=== PATIENT | male | born 1975 | race Caucasian/White ===

== ENCOUNTER 2022-04-07 04:03 | Emergency (ER) | payer OTHER ==
[~2022-04-07] VITALS: Ht 170.2 cm; Wt 83.0 kg
[2022-04-07] MEDS ORDERED: LISI10TA29 PO (04:55)
[2022-04-07] MEDS ORDERED: AMLO-212 PO (04:55)
[2022-04-07] MEDS ORDERED: FAMOTIDINE. 20 MG/2 ML VIAL IV ONE ×2 (05:00→05:02)
[2022-04-07] MEDS ORDERED: methylPREDNISolone SOD SUCC 125 MG/2 ML VIAL IV ONE (05:00)
[2022-04-07] MEDS ORDERED: diphenhydrAMINE 50 MG/1 ML VIAL IV ONE (05:00)
--- NOTE | 2022-04-07 05:00 | NUR ---
Patient is a/ox4, able to walk with steady gait. NAD noted. Patient denies SOB
[2022-04-07] MEDS ORDERED: diphenhydrAMINE 50 MG/1 ML VIAL ONE (05:01)
[2022-04-07] MEDS ORDERED: methylPREDNISolone SOD SUCC 125 MG/2 ML VIAL ONE (05:02)
[2022-04-07] MEDS ORDERED: ONDANSETRON 4 MG/2 ML VIAL ONE (05:15)
--- NOTE | 2022-04-07 05:16 | NUR ---
Dr Christy verbally ordered zofran 4mg IV.
[2022-04-07 05:18] LABS: HEMATOCRIT 40.3 % (36.7-47.1); MEAN CORPUSCULAR HEMOGLOBIN 26.3 uug (23.8-33.4); MEAN CORPUSCULAR VOLUME 77.7 fL (73.0-96.2); PLATELET COUNT (AUTO) 263 K/uL (152-348)
[2022-04-07 05:25] LABS: POTASSIUM 3.4 mmol/L (3.5-5.1)
[2022-04-07 05:30] LABS: BILIRUBIN,DIRECT 0.2 mg/dL (0.0-0.2); BILIRUBIN,TOTAL 1.1 mg/dL (0.2-1.0); TOTAL PROTEIN, SERUM 8.8 g/dL (6.4-8.2)
--- NOTE | 2022-04-07 07:17 | NUR ---
report given to Theodore PUENTE
--- NOTE | 2022-04-07 09:39 | NUR ---
Started transfusion of FFP at 0915, VSS. Recheck okay, VSS. Pt resting in bed, no complaints, no distress noted.
--- NOTE | 2022-04-07 10:30 | NUR ---
Ended transfusion at 1015, no reactions, no distress noted.
== END 2022-04-07 11:25 | disposition home or self-care (01) ==
LOC: ER 04:11
DX: T78.3XXA Angioneurotic edema, initial encounter (principal); T46.4X5A Adverse effect of angiotensin-converting-enzyme inhibitors, initial encounter; Y92.039 Unspecified place in apartment as the place of occurrence of the external cause; I10 Essential (primary) hypertension; E78.5 Hyperlipidemia, unspecified
CPT/HCPCS: 80076; 80048; 85025; 86850; 86900; 86901; 36415; 99285; 96374; 96375; 36430; P9059; J1200; J3490; J2930; J2405; A4663

== ENCOUNTER 2022-06-09 20:28 | Emergency (ER) | payer SELFPAY ==
[~2022-06-09 20:28] MED LIST: AMLO-212 PO; LISI10TA29 PO
--- NOTE | 2022-06-09 20:46 | NUR ---
Went outside to triaged patient, but was not present in the waiting room or outside of ER.
--- NOTE | 2022-06-09 21:10 | NUR ---
Patient was called to be triaged but was not present in the waiting room or outside of ER. PATIENT WAS NOT TRIAGED OR SEEN BY ERMD.
== END 2022-06-09 21:10 | disposition left against medical advice (07) ==
LOC: ER 20:28
DX: Z53.21 Procedure and treatment not carried out due to patient leaving prior to being seen by health care provider (principal)

== ENCOUNTER 2022-08-13 10:08 | Emergency (ER) | payer OTHER ==
[~2022-08-13] VITALS: Ht 167.6 cm; Wt 86.2 kg
--- NOTE | 2022-08-13 10:20 | NUR ---
Pt ambulatory to room 2A, c/o chest pressure and high blood pressure readings at home. at bedside.
[2022-08-13] MEDS ORDERED: AMLO-212 PO (10:21)
[2022-08-13] MEDS ORDERED: METO-356 PO (10:21)
[2022-08-13] MEDS ORDERED: PANT40TA49 PO (10:21)
--- NOTE | 2022-08-13 10:25 | NUR ---
[facility] to do EKG at this time due to EKG machine malfunction. [facility] called, spoke with Manolo.
[2022-08-13] MEDS ORDERED: ASPIRIN 325 MG TABLET PO ONE (10:30)
[2022-08-13 10:49] LABS: HEMATOCRIT 38.3 % (36.7-47.1); MEAN CORPUSCULAR HEMOGLOBIN 26.6 uug (23.8-33.4); MEAN CORPUSCULAR VOLUME 79.7 fL (73.0-96.2); PLATELET COUNT (AUTO) 258 K/uL (152-348)
[2022-08-13 11:04] LABS: ALANINE AMINOTRANSFERASE 27 U/L (16-63); ALKALINE PHOSPHATASE 109 U/L (50-136); ASPARTATE AMINOTRANSFERASE 14 U/L (15-37); BILIRUBIN,DIRECT 0.2 mg/dL (0.0-0.2); BILIRUBIN,TOTAL 0.7 mg/dL (0.2-1.0); CARBON DIOXIDE 28 mmol/L (21-32); CHLORIDE 101 mmol/L (98-107); GLUCOSE 114 mg/dL (74-106); POTASSIUM 3.5 mmol/L (3.5-5.1); TOTAL PROTEIN, SERUM 8.1 g/dL (6.4-8.2); UREA NITROGEN, BLOOD 14 mg/dL (7-18)
--- NOTE | 2022-08-13 11:05 | NUR ---
Pepito from [employer] here and unable to fix EKG machine. Attempted to use the old machine, which also not functional. ERMD notified. Called [facility] dept to bring another EKG machine.
[2022-08-13] MEDS ORDERED: ASPIRIN 325 MG TABLET ONE (12:14)
--- NOTE | 2022-08-13 13:22 | NUR ---
Gave pt d/c instructions, pt verbalized understanding.
== END 2022-08-13 13:24 | disposition home or self-care (01) ==
LOC: ER 10:08
DX: R07.89 Other chest pain (principal); R00.2 Palpitations; E78.5 Hyperlipidemia, unspecified; I10 Essential (primary) hypertension; Z79.899 Other long term (current) drug therapy
CPT/HCPCS: 36415; 71045; 84484; 85025; 93005; A4663

== ENCOUNTER 2022-11-13 17:48 | Emergency (ER) | payer OTHER ==
[~2022-11-13] VITALS: Ht 170.2 cm; Wt 85.3 kg
[~2022-11-13 17:48] MED LIST changes: -LISI10TA29 PO; +METO-356 PO; +PANT40TA49 PO
[2022-11-13] MEDS ORDERED: METO25TA6 MT (18:01)
[2022-11-13] MEDS ORDERED: PANT20TA17 MT (18:01)
[2022-11-13] MEDS ORDERED: KETOROLAC TROMETHAMINE 15 MG INJ ONE (18:58)
[2022-11-13] MEDS ORDERED: KETOROLAC TROMETHAMINE 15 MG INJ IVP ONE (19:00)
[2022-11-13] MEDS ORDERED: IV NORMAL SALINE 500 ML BAG IV ONE (19:00)
--- NOTE | 2022-11-13 19:00 | NUR ---
Patient a/o x 4. NAD noted. at bedside.
[2022-11-13 19:05] LABS: HEMATOCRIT 40.1 % (36.7-47.1); MEAN CORPUSCULAR HEMOGLOBIN 25.2 uug (23.8-33.4); MEAN CORPUSCULAR VOLUME 77.3 fL (73.0-96.2); PLATELET COUNT (AUTO) 253 K/uL (152-348)
--- NOTE | 2022-11-13 19:08 | NUR ---
Receieved report for CINDI Omer.
[2022-11-13 19:19] LABS: CARBON DIOXIDE 28 mmol/L (21-32); CHLORIDE 102 mmol/L (98-107); GLUCOSE 115 mg/dL (74-106); POTASSIUM 3.5 mmol/L (3.5-5.1); UREA NITROGEN, BLOOD 16 mg/dL (7-18)
[2022-11-13 19:21] LABS: BILIRUBIN,DIRECT 0.1 mg/dL (0.0-0.2); BILIRUBIN,TOTAL 0.9 mg/dL (0.2-1.0); TOTAL PROTEIN, SERUM 8.5 g/dL (6.4-8.2)
[2022-11-13 20:11] LABS: *BILIRUBIN,URIN NEGATIVE (NEGATIVE); *CLARITY,URINE CLEAR (CLEAR); *COLOR,URINE YELLOW (YELLOW); *KETONES,URINE NEGATIVE (NEGATIVE); *UROBILINOGEN,URINE 0.2 E.U./dl (NORMAL); LEUKOCYTE ESTERASE ,URINE NEGATIVE (NEGATIVE); NITRITE, URINE NEGATIVE (NEGATIVE); UGLUCOSE NEGATIVE (NEGATIVE)
[2022-11-13 20:14] LABS: *BLOOD, URINE TRACE (NEGATIVE)
--- NOTE | 2022-11-13 20:55 | NUR ---
Second trop draw via iv and sample given to Jimena, public health administrator.
--- NOTE | 2022-11-13 21:35 | NUR ---
Patient discharged to home in stable condition. A/O x 4. NAD noted. Ambulatory with a steady gait. Written and verbal after care instructions given. Patient verbalizes understanding of instructions. Stressed follow up or return to ER for worsening s/s.
[2022-11-13 21:55] VITALS: BP 145/87
[2022-11-13 22:21] LABS: BACTERIA,URINE FEW /HPF (NONE SEEN); SQUAMOUS EPITHELIAL CELL,UR FEW /HPF (NONE SEEN); WBC,URINE 0-3 /HPF (0-3)
== END 2022-11-13 21:36 | disposition home or self-care (01) ==
LOC: ER 17:48
DX: R07.9 Chest pain, unspecified (principal); R10.9 Unspecified abdominal pain; E78.5 Hyperlipidemia, unspecified; I10 Essential (primary) hypertension; Z88.8 Allergy status to other drugs, medicaments and biological substances
CPT/HCPCS: 99285; 96374; 71045; 96361; 80076; 80048; 81001; 83690; 85025; 84484 ×2; 36415; 93005; J1885; J7040; A4663

== ENCOUNTER 2024-01-15 06:18 | Emergency (ER) | payer OTHER ==
[~2024-01-15] VITALS: Ht 170.2 cm; Wt 90.7 kg
[~2024-01-15 06:18] MED LIST changes: -METO-356 PO; +METO25TA6 MT; +PANT20TA17 MT; -PANT40TA49 PO
[2024-01-15] MEDS ORDERED: CLON0.1T PO (06:27)
[2024-01-15 07:45] VITALS: O2SAT 99
== END 2024-01-15 07:48 | disposition home or self-care (01) ==
LOC: ER 06:19
DX: I10 Essential (primary) hypertension (principal); G47.33 Obstructive sleep apnea (adult) (pediatric); E78.00 Pure hypercholesterolemia, unspecified; E78.5 Hyperlipidemia, unspecified; Z79.899 Other long term (current) drug therapy; Z88.1 Allergy status to other antibiotic agents
CPT/HCPCS: A4606; A4663

== ENCOUNTER 2024-01-16 03:15 | Emergency (ER) | payer OTHER ==
[~2024-01-16] VITALS: Ht 170.2 cm; Wt 90.7 kg
[~2024-01-16 03:15] MED LIST changes: +CLON0.1T PO
[2024-01-16 05:04] LABS: BASOPHILS # (AUTO) 0.1 K/UL (0.0-0.2); BASOPHILS % (AUTO) 0.9 % (0.0-2.0); EOSINOPHILS # (AUTO) 0.3 K/uL (0.0-0.7); EOSINOPHILS % (AUTO) 4.4 % (0.0-7.0); HEMATOCRIT 40.8 % (36.7-47.1); HEMOGLOBIN 13.8 g/dL (12.5-16.3); LYMPHOCYTES # (AUTO) 2.5 K/uL (0.8-4.8); LYMPHOCYTES % (AUTO) 33.1 % (20.5-51.5); MEAN CORPUSCULAR HEMOGLOBIN 26.6 uug (23.8-33.4); MEAN CORPUSCULAR HGB CONC 34 g/dL (32.5-36.3); MEAN CORPUSCULAR VOLUME 78.5 fL (73.0-96.2); MONOCYTES # (AUTO) 0.4 K/uL (0.1-1.30); MONOCYTES % (AUTO) 5.6 % (0.0-11.0); NEUTROPHILS # (AUTO) 4.3 K/uL (1.8-8.9); PLATELET COUNT (AUTO) 241 K/uL (152-348); RED BLOOD CELL COUNT(AUTO) 5.19 MIL/uL (4.06-5.63); RED CELL DISTRIBUTION WIDTH 14.4 % (12.1-16.2); WHITE BLOOD COUNT (AUTO) 7.6 K/uL (3.6-10.2)
[2024-01-16 05:14] LABS: DIFFERENTIAL COMMENT 1
[2024-01-16 05:17] LABS: CALCIUM 8.7 mg/dL (8.5-10.1); CARBON DIOXIDE 29 mmol/L (21-32); CHLORIDE 100 mmol/L (98-107); GLUCOSE 105 mg/dL (74-106); POTASSIUM 3.5 mmol/L (3.5-5.1); SODIUM SERUM 138 mmol/L (136-145); UREA NITROGEN, BLOOD 12 mg/dL (7-18)
[2024-01-16 05:38] LABS: ALBUMIN 4.4 g/dL (3.4-5.0); BILIRUBIN,TOTAL 0.9 mg/dL (0.2-1.0); CALCIUM 9.1 mg/dL (8.5-10.1); POTASSIUM 3.5 mmol/L (3.5-5.1); TOTAL PROTEIN, SERUM 8.7 g/dL (6.4-8.2)
[2024-01-16 06:40] VITALS: BP 129/79; TEMP 98.8; O2SAT 96
== END 2024-01-16 06:25 | disposition home or self-care (01) ==
LOC: ER 03:18
DX: R07.89 Other chest pain (principal); I10 Essential (primary) hypertension; E78.00 Pure hypercholesterolemia, unspecified; E78.5 Hyperlipidemia, unspecified; Z79.899 Other long term (current) drug therapy; Z60.2 Problems related to living alone; Z88.1 Allergy status to other antibiotic agents
CPT/HCPCS: 36415; 71045; 83690; 84484; 85025; 93005; A4606; A4663